=== PATIENT | female | born 1985 | race Caucasian/White ===

== ENCOUNTER 2017-02-04 21:09 | Inpatient (IN) | payer MEDICAID ==
[~2017-02-04] VITALS: Ht 170.2 cm; Wt 55.2 kg
[2017-02-05] MEDS ORDERED: SODIUM CHLORIDE 0.9% 1,000 ML IVB ONE (04:17)
[2017-02-05] MEDS ORDERED: HYDROmorphone HCL 2 MG/ML VL IV ONE (04:30)
[2017-02-05] MEDS ORDERED: ALUM & MAG HYDROX-SIMETH LIQ(MAALOX) 30 ML PO ONE (04:30)
[2017-02-05] MEDS ORDERED: ONDANSETRON HCL 4 MG/2 ML VIAL IV ONE (04:30)
[2017-02-05] MEDS ORDERED: PANTOPRAZOLE SODIUM 40 MG/10 ML VIAL IV ONE (04:30)
[2017-02-05 04:39] LABS: Basophils # (auto) 0 uL; DEFINITIVE VIEW TRANSMISSION; Eosinophils # (auto) 0 uL; Eosinophils % (auto) 0.3 % (0.0-7.0); Hematocrit 40.1 % (36.0-46.0); Hemoglobin 13.4 g/dL (12.2-16.2); Lymphocytes # (auto) 1.1 uL; Lymphocytes % (auto) 25.8 % (10.0-50.0); Mean Corpuscular Hemoglobin 31.4 pg (28.0-32.0); Mean Corpuscular Hgb Conc. 33.4 g/dL (32.0-36.0); Mean Platelet Volume 7.5 fL (7.4-10.4); Monocytes # (auto) 0.6 uL; Monocytes % (auto) 14.4 % (0.0-12.0); Neutrophils # (auto) 2.5 uL; Neutrophils % (auto) 58.5 % (37.0-80.0); Platelet Count (auto) 318 10^3/uL (140-450); White Blood Cell 4.4 10^3/uL (4.4-10.8)
[2017-02-05 04:56] LABS: Albumin 3.8 g/dL (3.4-5.0); Amylase 237 U/L (25-115); Anion Gap 20 (5-15); Aspartate Aminotransferase 234 U/L (15-37); BUN/Creatinine Ratio 8.6; Blood Urea Nitrogen 5 mg/dL (7-18); Calcium 8.9 mg/dL (8.5-10.1); Carbon Dioxide 16 mmol/L (21-32); Chloride 97 mmol/L (98-107); GFR African American 156 mL/min; GFR Non-African American 129 mL/min; Glucose 57 mg/dL (74-106); Magnesium 1.7 mg/dL (1.6-2.6); Potassium 4.6 mmol/L (3.5-5.1); Sodium 133 mmol/L (136-145)
[2017-02-05 04:58] LABS: Alkaline Phosphatase 168 U/L (45-117); Bilirubin, Total 1.1 mg/dL (0.2-1.0); Total Protein 8.4 g/dL (6.4-8.2)
[2017-02-05 05:02] LABS: INR 1.07 (0.9-1.15); Prothrombin Time 11.6 sec (9.37-12.3)
[2017-02-05] MEDS ORDERED: LORazepam 2MG/ML-1ML VIAL IV ONE (06:00)
[2017-02-05] MEDS ORDERED: ACETAMINOPHEN 325 MG TAB PO PRN (07:15)
[2017-02-05] MEDS ORDERED: TEMAZEPAM 15 MG CAP PO PRN (07:15)
[2017-02-05] MEDS: THIAMINE INJ 100 MG, MULTIPLE VITAMIN 10 ML, FOLIC ACID 1 MG, MAGNESIUM SULF SDV 50% 8 ... IV SCH ×10 (07:15→12:16)
[2017-02-05] MEDS ORDERED: DIAZEPAM 5 MG TAB PO PRN (07:15)
[2017-02-05 08:58] LABS: Urine Bilirubin Negative (Negative); Urine Blood Negative /uL (Negative); Urine Color Yellow (Yellow); Urine Glucose Normal (Normal); Urine Mucus FEW (None Seen); Urine Nitrite Negative (Negative); Urine RBC <1 /hpf (0 - 4); Urine Squamous Epithelial Cell FEW /hpf (<5); Urine pH 5.5 (5.0-8.0)
[2017-02-05 08:59] LABS: Urine Ketone 4+ (Negative)
[2017-02-05 09:00] VITALS: BP 92/67
[2017-02-05] MEDS: PANTOPRAZOLE SODIUM 40 MG/10 ML VIAL IV SCH (12:14)
[2017-02-05] MEDS: THIAMINE HCL 100 MG TAB PO SCH (12:15)
[2017-02-05] MEDS: FOLIC ACID 1 MG TAB PO SCH (12:15)
[2017-02-05] MEDS: HYDROcodone-ACET 5/325MG TAB PO PRN ×3 (12:34→21:08)
[2017-02-05 13:17] VITALS: BP 93/60
[2017-02-05 17:02] VITALS: BP 99/61
[2017-02-05 20:00] VITALS: BP 100/64
[2017-02-05] MEDS: ONDANSETRON HCL 4 MG/2 ML VIAL IV PRN (21:08)
[2017-02-05 23:15] VITALS: BP 100/64
[2017-02-06] MEDS: HYDROcodone-ACET 5/325MG TAB PO PRN ×4 (02:46→14:58)
[2017-02-06 05:17] VITALS: BP 110/73
[2017-02-06 06:00] LABS: Basophils # (auto) 0 uL; Basophils % (auto) 0.2 % (0.0-2.0); Eosinophils # (auto) 0.1 uL; Eosinophils % (auto) 1.9 % (0.0-7.0); Hematocrit 33.4 % (36.0-46.0); Hemoglobin 10.9 g/dL (12.2-16.2); Lymphocytes # (auto) 1.8 uL; Lymphocytes % (auto) 48.1 % (10.0-50.0); Mean Corpuscular Hemoglobin 31.4 pg (28.0-32.0); Mean Corpuscular Hgb Conc. 32.8 g/dL (32.0-36.0); Mean Corpuscular Volume 95.7 fL (80.0-100.0); Mean Platelet Volume 7.8 fL (7.4-10.4); Monocytes # (auto) 0.4 uL; Monocytes % (auto) 11.7 % (0.0-12.0); Neutrophils # (auto) 1.5 uL; Neutrophils % (auto) 38.1 % (37.0-80.0); Platelet Count (auto) 231 10^3/uL (140-450); Red Cell Distribution Width 18.8 % (11.6-16.0); White Blood Cell 3.8 10^3/uL (4.4-10.8)
[2017-02-06 06:44] LABS: Albumin 2.9 g/dL (3.4-5.0); Bilirubin, Total 0.8 mg/dL (0.2-1.0); Magnesium 1.9 mg/dL (1.6-2.6); Potassium 3.5 mmol/L (3.5-5.1)
[2017-02-06 08:00] VITALS: BP 117/73
[2017-02-06 08:13] VITALS: BP 117/73
[2017-02-06] MEDS: FOLIC ACID 1 MG TAB PO SCH (09:06)
[2017-02-06] MEDS: THIAMINE HCL 100 MG TAB PO SCH (09:07)
[2017-02-06] MEDS: PANTOPRAZOLE SODIUM 40 MG/10 ML VIAL IV SCH (09:07)
[2017-02-06] MEDS: ONDANSETRON HCL 4 MG/2 ML VIAL IV PRN (09:08)
[2017-02-06] MEDS ORDERED: POTASSIUM CHL 20 Meq TABLET PO ONE (12:00)
[2017-02-06] MEDS ORDERED: MAGNESIUM SULFATE 1GM/100ML 100 ML IV ONE (12:00)
[2017-02-06 12:53] VITALS: BP 103/78
[2017-02-06] MEDS ORDERED: PANT40TA2 PO (13:11)
[2017-02-06] MEDS: THIAMINE INJ 100 MG, MULTIPLE VITAMIN 10 ML, FOLIC ACID 1 MG, MAGNESIUM SULF SDV 50% 8 ... IV SCH ×5 (14:26)
[2017-02-06 17:05] VITALS: BP 111/77
== END 2017-02-06 18:22 | disposition home or self-care (01) | DRG 241 ==
LOC: EDBD 21:09 → ER 21:12 → OVERFLOW 21:13 → EAST 02-05 08:06 → WEST WING 02-05 09:08
PROVIDERS: ADMIT Nurse Practitioner; ATTEND Internal Medicine
DX: K29.20 Alcoholic gastritis without bleeding (principal); K70.30 Alcoholic cirrhosis of liver without ascites; K70.10 Alcoholic hepatitis without ascites; F10.239 Alcohol dependence with withdrawal, unspecified; K76.0 Fatty (change of) liver, not elsewhere classified; F12.90 Cannabis use, unspecified, uncomplicated; F17.210 Nicotine dependence, cigarettes, uncomplicated; F32.9 Major depressive disorder, single episode, unspecified; F41.9 Anxiety disorder, unspecified; Z88.8 Allergy status to other drugs, medicaments and biological substances
CPT/HCPCS: 36415; 36600; 76705; 80053; 80061; 80320; 81001; 82150; 82805; 83690; 83735; 85025; 85610; 85730; 87086; 96361; 96374; 96375; C9113; G0434; J2405

== ENCOUNTER 2017-04-02 13:07 | Inpatient (IN) | payer MEDICAID ==
[~2017-04-02] VITALS: Ht 170.2 cm; Wt 57.1 kg
[~2017-04-02 13:07] MED LIST: PANT40TA2 PO
[2017-04-02] MEDS ORDERED: SODIUM CHLORIDE 0.9% 1,000 ML IV ONE (13:45)
[2017-04-02] MEDS ORDERED: SODIUM CHLORIDE 0.9% 1,000 ML IVB ONE (13:49)
[2017-04-02] MEDS ORDERED: ONDANSETRON HCL 4 MG/2 ML VIAL IV ONE (14:00)
[2017-04-02] MEDS ORDERED: NALBUPHINE HCL 10 MG/1ml INJECTION IV ONE (14:00)
[2017-04-02] MEDS ORDERED: HYDROmorphone HCL 2 MG/ML VL IV ONE (14:00)
[2017-04-02 14:56] LABS: Basophils # (auto) 0 uL; Basophils % (auto) 0.2 % (0.0-2.0); Eosinophils # (auto) 0 uL; Hematocrit 39.1 % (36.0-46.0); Hemoglobin 13.1 g/dL (12.2-16.2); Lymphocytes # (auto) 0.2 uL; Mean Corpuscular Hemoglobin 33.3 pg (28.0-32.0); Mean Corpuscular Hgb Conc. 33.5 g/dL (32.0-36.0); Mean Corpuscular Volume 99.5 fL (80.0-100.0); Mean Platelet Volume 8.8 fL (7.4-10.4); Monocytes # (auto) 0.4 uL; Monocytes % (auto) 3.9 % (0.0-12.0); Neutrophils # (auto) 9.1 uL; Neutrophils % (auto) 93.9 % (37.0-80.0); Platelet Count (auto) 291 10^3/uL (140-450); Red Cell Distribution Width 18.4 % (11.6-16.0); White Blood Cell 9.7 10^3/uL (4.4-10.8)
[2017-04-02 15:06] LABS: Calcium 8.3 mg/dL (8.5-10.1); Magnesium 1.8 mg/dL (1.6-2.6); Potassium 4.4 mmol/L (3.5-5.1)
[2017-04-02 15:10] LABS: BUN/Creatinine Ratio 5.7; Bilirubin, Total 8.4 mg/dL (0.2-1.0); Total Protein 7.3 g/dL (6.4-8.2)
[2017-04-02] MEDS ORDERED: DOPamine 1600MCG/ML 250 ML IV ONE (16:00)
[2017-04-02] MEDS ORDERED: cefTRIAXone 1GM/50ML D5W 50 ML IV ONE (16:45)
[2017-04-02] MEDS ORDERED: NOREPINEPHRINE BITARTRATE 250 ML IV ONE (16:56)
[2017-04-02] MEDS ORDERED: SODIUM CHLORIDE 0.9% 2,000 ML IV ONE (17:00)
[2017-04-02] MEDS ORDERED: PANTOPRAZOLE SODIUM 40 MG/10 ML VIAL IV ONE (17:00)
[2017-04-02] MEDS ORDERED: PIPERACILLIN-TAZOB 3.375GM 100 ML IV ONE (17:00)
[2017-04-02] MEDS: NOREPINEPHRINE BITARTRATE 250 ML IV SCH (17:00)
[2017-04-02] MEDS ORDERED: NITROGLYCERIN 0.4 MG SL TAB SL PRN (17:00)
[2017-04-02] MEDS ORDERED: MORPHINE SULF INJ 2 MG/ML SYRINGE 1ML IV PRN (17:00)
[2017-04-02] MEDS ORDERED: CLINDAMYCIN 600MG IV 50 ML IV ONE (17:00)
[2017-04-02 17:51] LABS: Lactic Acid w/Reflex 9.7 mmol/L (0.4-2.0)
[2017-04-02 18:19] LABS: REFLEX LACTIC ACID YES OR NO YES
[2017-04-02] MEDS: SODIUM CHLORIDE 0.9% 1,000 ML IV SCH (19:00)
[2017-04-02] MEDS: MORPHINE SULF INJ 2 MG/ML SYRINGE 1ML IV PRN ×2 (19:00→23:31)
[2017-04-02] MEDS: LORazepam 2MG/ML-1ML VIAL IV PRN (20:48)
[2017-04-02 20:56] LABS: Albumin 2.1 g/dL (3.4-5.0); BUN/Creatinine Ratio 5.6; Calcium 6.3 mg/dL (8.5-10.1); Potassium 4.7 mmol/L (3.5-5.1)
[2017-04-02] MEDS ORDERED: chlordiazePOXIDE HCL 25 MG CAP PO PRN (21:00)
[2017-04-02 21:12] LABS: Bilirubin, Total 6.2 mg/dL (0.2-1.0); Total Protein 5.2 g/dL (6.4-8.2)
[2017-04-02] MEDS ORDERED: THIAMINE HCL 100 MG/ML 2ML VIAL IV ONE (21:15)
[2017-04-02 22:02] LABS: Urine Color Brown (Yellow); Urine Glucose Normal (Normal); Urine Hyaline Cast MANY /lpf (0 - 2); Urine Ketone TRACE (Negative); Urine Mucus FEW (None Seen); Urine Nitrite Negative (Negative); Urine RBC 15 /hpf (0 - 4); Urine Squamous Epithelial Cell MOD /hpf (<5); Urine WBC Clumps PRESENT /hpf (None Seen); Urine pH 5.5 (5.0-8.0)
[2017-04-02 22:07] LABS: Urine Bilirubin 3+ (Negative); Urine Blood 3+ /uL (Negative)
[2017-04-02] MEDS: CLINDAMYCIN 600MG IV 50 ML IV SCH (22:25)
[2017-04-03] MEDS: SODIUM CHLORIDE 0.9% 1,000 ML IV SCH ×2 (00:06→06:18)
[2017-04-03] MEDS: chlordiazePOXIDE HCL 5 MG CAP PO SCH ×4 (00:18→18:24)
[2017-04-03] MEDS: PIPERACILLIN-TAZOB 3.375GM 100 ML IV SCH ×4 (00:28→18:24)
[2017-04-03] MEDS: NOREPINEPHRINE BITARTRATE 250 ML IV SCH (02:13)
[2017-04-03] MEDS: MORPHINE SULF INJ 2 MG/ML SYRINGE 1ML IV PRN ×3 (03:46→17:00)
[2017-04-03] MEDS: LORazepam 2MG/ML-1ML VIAL IV PRN (04:38)
[2017-04-03] MEDS: CLINDAMYCIN 600MG IV 50 ML IV SCH ×3 (05:25→22:00)
[2017-04-03 08:20] LABS: Basophils # (auto) 0 uL; Basophils % (auto) 0.5 % (0.0-2.0); Eosinophils # (auto) 0 uL; Eosinophils % (auto) 0.5 % (0.0-7.0); Hematocrit 32.9 % (36.0-46.0); Lymphocytes # (auto) 1.2 uL; Lymphocytes % (auto) 15.1 % (10.0-50.0); Mean Corpuscular Hgb Conc. 33.6 g/dL (32.0-36.0); Mean Corpuscular Volume 98.2 fL (80.0-100.0); Mean Platelet Volume 8.5 fL (7.4-10.4); Monocytes # (auto) 0.6 uL; Monocytes % (auto) 7.6 % (0.0-12.0); Neutrophils # (auto) 6.3 uL; Neutrophils % (auto) 76.3 % (37.0-80.0); Platelet Count (auto) 243 10^3/uL (140-450); Red Cell Distribution Width 17.8 % (11.6-16.0); White Blood Cell 8.3 10^3/uL (4.4-10.8)
[2017-04-03 09:09] LABS: Albumin 2.2 g/dL (3.4-5.0); Alkaline Phosphatase 211 U/L (45-117); Amylase 258 U/L (25-115); Anion Gap 12 (5-15); Aspartate Aminotransferase 6884 U/L (15-37); BUN/Creatinine Ratio 9.9; Blood Urea Nitrogen 14 mg/dL (7-18); Calcium 6.4 mg/dL (8.5-10.1); Carbon Dioxide 18 mmol/L (21-32); Chloride 108 mmol/L (98-107); Cholesterol < 50 mg/dL (< 200); GFR African American 55 mL/min; GFR Non-African American 46 mL/min; Glucose 82 mg/dL (74-106); HDL Cholesterol 8 mg/dL (40-59); LDL Cholesterol 32 mg/dL (< 100); Potassium 4.4 mmol/L (3.5-5.1); Sodium 138 mmol/L (136-145); Total Protein 5.3 g/dL (6.4-8.2); Triglycerides 85 mg/dL (< 150)
[2017-04-03] MEDS: PROMETHAZINE HCL 25 MG/ML 1ML IV PRN ×2 (09:30→17:00)
[2017-04-03] MEDS: THIAMINE HCL 100 MG/ML 2ML VIAL IV SCH (12:00)
[2017-04-03] MEDS: PANTOPRAZOLE SODIUM 40 MG/10 ML VIAL IV SCH (12:00)
[2017-04-03] MEDS: LACTATED RINGER'S 1,000 ML IV SCH ×3 (12:30→22:39)
[2017-04-03] MEDS ORDERED: PHYTONADIONE ORAL Susp 10 mg/10ml PO ONE (14:30)
[2017-04-03] MEDS ORDERED: LACTULOSE 20Gm/30ML SOLN PO ONE (23:00)
[2017-04-04] MEDS: PIPERACILLIN-TAZOB 3.375GM 100 ML IV SCH ×5 (00:12→23:59)
[2017-04-04] MEDS: LACTATED RINGER'S 1,000 ML IV SCH ×5 (03:52→23:30)
[2017-04-04 04:18] LABS: Basophils # (auto) 0.1 uL; Basophils % (auto) 1.4 % (0.0-2.0); Eosinophils # (auto) 0.5 uL; Hematocrit 31.5 % (36.0-46.0); Hemoglobin 10.8 g/dL (12.2-16.2); Mean Corpuscular Hemoglobin 33.2 pg (28.0-32.0); Mean Corpuscular Hgb Conc. 34.4 g/dL (32.0-36.0); Mean Corpuscular Volume 96.5 fL (80.0-100.0); Mean Platelet Volume 7.9 fL (7.4-10.4); Monocytes # (auto) 0.4 uL; Monocytes % (auto) 9.6 % (0.0-12.0); Neutrophils # (auto) 2.5 uL; Platelet Count (auto) 218 10^3/uL (140-450); Red Cell Distribution Width 17.5 % (11.6-16.0); White Blood Cell 4.5 10^3/uL (4.4-10.8)
[2017-04-04 04:32] LABS: Albumin 1.7 g/dL (3.4-5.0); BUN/Creatinine Ratio 15.7; Calcium 6.7 mg/dL (8.5-10.1); Potassium 3.2 mmol/L (3.5-5.1)
[2017-04-04 04:48] LABS: Bilirubin, Total 6.3 mg/dL (0.2-1.0); Total Protein 4.7 g/dL (6.4-8.2)
[2017-04-04 05:04] LABS: INR > 10 (0.9-1.15)
[2017-04-04] MEDS: chlordiazePOXIDE HCL 5 MG CAP PO SCH ×5 (06:00→23:59)
[2017-04-04] MEDS: CLINDAMYCIN 600MG IV 50 ML IV SCH (06:20)
[2017-04-04] MEDS: MORPHINE SULF INJ 2 MG/ML SYRINGE 1ML IV PRN (09:12)
[2017-04-04] MEDS: PHYTONADIONE ORAL Susp 10 mg/10ml PO SCH (10:00)
[2017-04-04] MEDS ORDERED: POTASSIUM CHL 20MEQ/100ML 100 ML IV ONE (13:30)
[2017-04-04] MEDS: THIAMINE HCL 100 MG/ML 2ML VIAL IV SCH (13:38)
[2017-04-04] MEDS: PANTOPRAZOLE SODIUM 40 MG/10 ML VIAL IV SCH (13:39)
[2017-04-04] MEDS: LACTULOSE 20Gm/30ML SOLN PR SCH ×3 (13:47→23:59)
[2017-04-04 14:03] VITALS: BP 105/70
[2017-04-04 20:00] VITALS: BP 95/54
[2017-04-04] MEDS: PROMETHAZINE HCL 25 MG/ML 1ML IV PRN (20:45)
[2017-04-04 22:00] VITALS: BP 95/54
[2017-04-05] VITALS (7 sets, daily range): BP systolic 101–120; BP diastolic 44–73
[2017-04-05] MEDS: LACTATED RINGER'S 1,000 ML IV SCH ×4 (04:30→18:23)
[2017-04-05] MEDS: PIPERACILLIN-TAZOB 3.375GM 100 ML IV SCH ×3 (05:40→18:21)
[2017-04-05] MEDS: chlordiazePOXIDE HCL 5 MG CAP PO SCH ×3 (05:40→18:21)
[2017-04-05] MEDS: LACTULOSE 20Gm/30ML SOLN PR SCH ×3 (05:40→18:22)
[2017-04-05] MEDS: MORPHINE SULF INJ 2 MG/ML SYRINGE 1ML IV PRN (05:41)
[2017-04-05 06:14] LABS: Basophils # (auto) 0 uL; Basophils % (auto) 0.9 % (0.0-2.0); Eosinophils # (auto) 0.5 uL; Eosinophils % (auto) 9.3 % (0.0-7.0); Hematocrit 31.5 % (36.0-46.0); Hemoglobin 11.2 g/dL (12.2-16.2); Lymphocytes # (auto) 0.7 uL; Lymphocytes % (auto) 13.2 % (10.0-50.0); Mean Corpuscular Hemoglobin 33.8 pg (28.0-32.0); Mean Corpuscular Hgb Conc. 35.6 g/dL (32.0-36.0); Mean Corpuscular Volume 94.9 fL (80.0-100.0); Mean Platelet Volume 7.9 fL (7.4-10.4); Monocytes # (auto) 0.6 uL; Monocytes % (auto) 11.7 % (0.0-12.0); Neutrophils # (auto) 3.2 uL; Neutrophils % (auto) 64.9 % (37.0-80.0); Platelet Count (auto) 224 10^3/uL (140-450); Red Cell Distribution Width 18.4 % (11.6-16.0); White Blood Cell 4.9 10^3/uL (4.4-10.8)
[2017-04-05 06:37] LABS: INR 2.07 (0.9-1.15); Prothrombin Time 22.7 sec (9.37-12.3)
[2017-04-05 06:40] LABS: Albumin 1.8 g/dL (3.4-5.0); BUN/Creatinine Ratio 15.4; Bilirubin, Total 7.7 mg/dL (0.2-1.0); Calcium 6.6 mg/dL (8.5-10.1); Magnesium 1.3 mg/dL (1.6-2.6); Total Protein 4.7 g/dL (6.4-8.2)
[2017-04-05] MEDS: PANTOPRAZOLE SODIUM 40 MG/10 ML VIAL IV SCH (09:55)
[2017-04-05] MEDS: THIAMINE HCL 100 MG/ML 2ML VIAL IV SCH (09:55)
[2017-04-05] MEDS: PHYTONADIONE ORAL Susp 10 mg/10ml PO SCH (09:56)
[2017-04-05] MEDS ORDERED: POTASSIUM CHL 20MEQ/100ML 100 ML IV SCH ×2 (16:15→20:00)
[2017-04-05] MEDS ORDERED: MAGNESIUM SULFATE 1GM/100ML 100 ML IV SCH ×2 (17:00→20:00)
[2017-04-06] MEDS ORDERED: MAGNESIUM SULFATE 1GM/100ML 100 ML IV ONE (01:17)
[2017-04-06 01:30] VITALS: BP 117/73
[2017-04-06] MEDS: MORPHINE SULF INJ 2 MG/ML SYRINGE 1ML IV PRN ×3 (01:30→22:37)
[2017-04-06] MEDS: PROMETHAZINE HCL 25 MG/ML 1ML IV PRN ×2 (01:30→17:28)
[2017-04-06] MEDS: PIPERACILLIN-TAZOB 3.375GM 100 ML IV SCH ×4 (01:40→17:24)
[2017-04-06] MEDS: chlordiazePOXIDE HCL 5 MG CAP PO SCH ×4 (01:40→17:26)
[2017-04-06] MEDS: LACTULOSE 20Gm/30ML SOLN PR SCH ×2 (01:40→06:00)
[2017-04-06 04:47] VITALS: BP 116/67
[2017-04-06] MEDS: LACTATED RINGER'S 1,000 ML IV SCH ×5 (05:30→22:18)
[2017-04-06 06:31] LABS: Albumin 1.7 g/dL (3.4-5.0); BUN/Creatinine Ratio 5.7; Calcium 7.3 mg/dL (8.5-10.1); Magnesium 2.2 mg/dL (1.6-2.6); Potassium 3.2 mmol/L (3.5-5.1)
[2017-04-06 06:34] LABS: Bilirubin, Total 7.9 mg/dL (0.2-1.0)
[2017-04-06 06:37] LABS: INR 1.61 (0.9-1.15); Prothrombin Time 17.6 sec (9.37-12.3)
[2017-04-06 09:00] VITALS: BP 103/65
[2017-04-06] MEDS: PHYTONADIONE ORAL Susp 10 mg/10ml PO SCH (10:02)
[2017-04-06] MEDS: PANTOPRAZOLE SODIUM 40 MG/10 ML VIAL IV SCH (10:07)
[2017-04-06] MEDS: THIAMINE HCL 100 MG/ML 2ML VIAL IV SCH (10:07)
[2017-04-06 13:00] VITALS: BP 114/74
[2017-04-06] MEDS: LACTULOSE 20Gm/30ML SOLN PO SCH ×2 (14:00→22:19)
[2017-04-06] MEDS: POTASSIUM CHL 20MEQ/100ML 100 ML IV SCH ×2 (15:28→17:23)
[2017-04-06 17:00] VITALS: BP 106/68
[2017-04-06 21:41] VITALS: BP 118/78
[2017-04-07] MEDS: LACTATED RINGER'S 1,000 ML IV SCH ×5 (01:30→22:29)
[2017-04-07] MEDS: PIPERACILLIN-TAZOB 3.375GM 100 ML IV SCH ×2 (01:41→05:31)
[2017-04-07] MEDS: chlordiazePOXIDE HCL 5 MG CAP PO SCH ×4 (01:42→17:45)
[2017-04-07 05:00] VITALS: BP 136/93
[2017-04-07] MEDS: LACTULOSE 20Gm/30ML SOLN PO SCH ×3 (05:32→21:48)
[2017-04-07] MEDS: MORPHINE SULF INJ 2 MG/ML SYRINGE 1ML IV PRN ×4 (05:34→22:11)
[2017-04-07 08:00] VITALS: BP 118/71
[2017-04-07 08:00] LABS: INR 1.59 (0.9-1.15); Prothrombin Time 17.4 sec (9.37-12.3)
[2017-04-07 08:10] LABS: Calcium 7.3 mg/dL (8.5-10.1); Chloride 111 mmol/L (98-107); Potassium 3.3 mmol/L (3.5-5.1); Sodium 144 mmol/L (136-145)
[2017-04-07 08:13] LABS: Albumin 1.7 g/dL (3.4-5.0); Anion Gap 9 (5-15); Aspartate Aminotransferase 340 U/L (15-37); BUN/Creatinine Ratio 2.2; Blood Urea Nitrogen < 1 mg/dL (7-18); Carbon Dioxide 24 mmol/L (21-32); GFR African American 209 mL/min; GFR Non-African American 173 mL/min; Glucose 98 mg/dL (74-106)
[2017-04-07 08:23] LABS: Alkaline Phosphatase 147 U/L (45-117)
[2017-04-07] MEDS: THIAMINE HCL 100 MG/ML 2ML VIAL IV SCH (09:00)
[2017-04-07] MEDS: PANTOPRAZOLE SODIUM 40 MG/10 ML VIAL IV SCH (09:00)
[2017-04-07 09:19] VITALS: BP 118/71
[2017-04-07] MEDS ORDERED: POTASSIUM CHL 20MEQ/100ML 100 ML IV SCH (10:30)
[2017-04-07] MEDS ORDERED: cefTRIAXone 1GM/50ML D5W 50 ML IV ONE (10:30)
[2017-04-07 11:44] VITALS: BP 113/74
[2017-04-07] MEDS ORDERED: POTASSIUM CHLORIDE 20 MEQ, LIDOCAINE 1% (LOCAL ANESTH.) 2 ML in SODIUM CHL 0.9% 100 ML IV SCH (13:00)
[2017-04-07] MEDS ORDERED: POTASSIUM CHL 10% (20 MEQ/15ML) ORAL SOLN PO ONE (14:00)
[2017-04-07 20:00] VITALS: BP 131/65
[2017-04-07 22:00] VITALS: BP 131/65
[2017-04-08] MEDS: chlordiazePOXIDE HCL 5 MG CAP PO SCH ×4 (00:49→17:49)
[2017-04-08] MEDS: MORPHINE SULF INJ 2 MG/ML SYRINGE 1ML IV PRN ×4 (02:30→21:25)
[2017-04-08] MEDS: LACTATED RINGER'S 1,000 ML IV SCH ×2 (02:30→06:44)
[2017-04-08 05:00] VITALS: BP 110/72
[2017-04-08] MEDS: LACTULOSE 20Gm/30ML SOLN PO SCH ×3 (05:57→21:36)
[2017-04-08 07:12] LABS: Albumin 1.8 g/dL (3.4-5.0); BUN/Creatinine Ratio 5.4; Bilirubin, Total 9.4 mg/dL (0.2-1.0); Calcium 7.9 mg/dL (8.5-10.1); Magnesium 1.9 mg/dL (1.6-2.6); Total Protein 5.5 g/dL (6.4-8.2)
[2017-04-08 09:00] VITALS: BP 119/80
[2017-04-08 10:37] LABS: DEFINITIVE VIEW TRANSMISSION; Hematocrit 33.9 % (36.0-46.0); Hemoglobin 11.3 g/dL (12.2-16.2); Mean Corpuscular Hemoglobin 33.1 pg (28.0-32.0); Mean Corpuscular Hgb Conc. 33.5 g/dL (32.0-36.0); Mean Corpuscular Volume 98.9 fL (80.0-100.0); Mean Platelet Volume 8.7 fL (7.4-10.4); Platelet Count (auto) 199 10^3/uL (140-450); Red Cell Distribution Width 19.6 % (11.6-16.0); White Blood Cell 7.3 10^3/uL (4.4-10.8)
[2017-04-08 10:39] LABS: Metamyelocytes % 0; Myelocytes % 0; Promyelocytes % 0; Reactive Lymphocytes 0
[2017-04-08 10:56] LABS: INR 1.52 (0.9-1.15); Prothrombin Time 16.6 sec (9.37-12.3)
[2017-04-08 11:08] LABS: Anisocytosis Slight; Platelet Estimate Adequate
[2017-04-08] MEDS: cefTRIAXone 1GM/50ML D5W 50 ML IV SCH (11:12)
[2017-04-08] MEDS: THIAMINE HCL 100 MG/ML 2ML VIAL IV SCH (11:13)
[2017-04-08 13:00] VITALS: BP 120/90
[2017-04-08] MEDS ORDERED: MAGNESIUM SULFATE 1GM/100ML 100 ML IV ONE (13:00)
[2017-04-08] MEDS: SODIUM CHLORIDE 0.9% 1,000 ML IV SCH ×2 (13:52→21:37)
[2017-04-08 17:07] VITALS: BP 107/66
[2017-04-08] MEDS: PANTOPRAZOLE 40 MG TAB PO SCH (21:36)
[2017-04-08 22:00] VITALS: BP 131/92
[2017-04-09] MEDS: MORPHINE SULF INJ 2 MG/ML SYRINGE 1ML IV PRN ×4 (01:26→23:57)
[2017-04-09 05:48] VITALS: BP 110/70
[2017-04-09] MEDS: chlordiazePOXIDE HCL 5 MG CAP PO SCH ×2 (05:54)
[2017-04-09] MEDS: LACTULOSE 20Gm/30ML SOLN PO SCH ×3 (05:54→21:14)
[2017-04-09] MEDS: cefTRIAXone 1GM/50ML D5W 50 ML IV SCH (08:57)
[2017-04-09 09:00] VITALS: BP 106/69
[2017-04-09] MEDS: THIAMINE HCL 100 MG/ML 2ML VIAL IV SCH (10:35)
[2017-04-09] MEDS: PANTOPRAZOLE 40 MG TAB PO SCH ×2 (10:35→21:15)
[2017-04-09 10:36] LABS: Magnesium 1.7 mg/dL (1.6-2.6); Potassium 4.1 mmol/L (3.5-5.1)
[2017-04-09] MEDS: MAGNESIUM SULFATE 1GM/100ML 100 ML IV ONE ×2 (11:30→12:16)
[2017-04-09 12:45] VITALS: BP 110/75
[2017-04-09] MEDS: SODIUM CHLORIDE 0.9% 1,000 ML IV SCH (16:12)
[2017-04-09 16:50] VITALS: BP 132/89
[2017-04-09 20:00] VITALS: BP 125/77
[2017-04-09 22:00] VITALS: BP 125/77
[2017-04-10 05:30] VITALS: BP 105/59
[2017-04-10] MEDS: SODIUM CHLORIDE 0.9% 1,000 ML IV SCH ×2 (05:47→18:33)
[2017-04-10] MEDS: LACTULOSE 20Gm/30ML SOLN PO SCH ×3 (05:47→22:00)
[2017-04-10] MEDS: MORPHINE SULF INJ 2 MG/ML SYRINGE 1ML IV PRN ×3 (05:58→18:16)
[2017-04-10 07:05] LABS: INR 1.5 (0.9-1.15); Prothrombin Time 16.4 sec (9.37-12.3)
[2017-04-10 07:10] LABS: Albumin 1.7 g/dL (3.4-5.0); Bilirubin, Total 9.4 mg/dL (0.2-1.0); Magnesium 1.8 mg/dL (1.6-2.6); Total Protein 5.2 g/dL (6.4-8.2)
[2017-04-10 07:14] LABS: Bilirubin, Direct 7.8 mg/dL (0-0.2)
[2017-04-10 08:45] VITALS: BP 123/83
[2017-04-10] MEDS: cefTRIAXone 1GM/50ML D5W 50 ML IV SCH (09:35)
[2017-04-10] MEDS: PANTOPRAZOLE 40 MG TAB PO SCH ×2 (09:36→22:15)
[2017-04-10] MEDS: THIAMINE HCL 100 MG/ML 2ML VIAL IV SCH (09:36)
[2017-04-10] MEDS ORDERED: MAGNESIUM SULFATE 1GM/100ML 100 ML IV ONE (11:00)
[2017-04-10] MEDS ORDERED: chlordiazePOXIDE HCL 25 MG CAP PO PRN (11:00)
[2017-04-10 13:00] VITALS: BP 112/79
[2017-04-10 17:00] VITALS: BP 118/78
[2017-04-10 21:18] VITALS: BP 121/88
[2017-04-11] MEDS: MORPHINE SULF INJ 2 MG/ML SYRINGE 1ML IV PRN ×4 (01:41→19:49)
[2017-04-11 04:56] VITALS: BP 112/57
[2017-04-11] MEDS: LACTULOSE 20Gm/30ML SOLN PO SCH ×3 (05:54→21:49)
[2017-04-11 06:58] LABS: Albumin 1.7 g/dL (3.4-5.0); Bilirubin, Total 9.6 mg/dL (0.2-1.0); Magnesium 1.7 mg/dL (1.6-2.6); Potassium 3.7 mmol/L (3.5-5.1); Total Protein 5.3 g/dL (6.4-8.2)
[2017-04-11 07:00] LABS: Bilirubin, Direct 7.8 mg/dL (0-0.2)
[2017-04-11] MEDS: SODIUM CHLORIDE 0.9% 1,000 ML IV SCH ×2 (07:40→21:00)
[2017-04-11] MEDS: THIAMINE HCL 100 MG/ML 2ML VIAL IV SCH (08:38)
[2017-04-11] MEDS: cefTRIAXone 1GM/50ML D5W 50 ML IV SCH (08:40)
[2017-04-11] MEDS: PANTOPRAZOLE 40 MG TAB PO SCH ×2 (08:42→21:49)
[2017-04-11 09:00] VITALS: BP 117/72
[2017-04-11] MEDS ORDERED: POTASSIUM CHL 20 Meq TABLET PO ONE (11:45)
[2017-04-11] MEDS: MAGNESIUM SULFATE 1GM/100ML 100 ML IV SCH ×2 (12:55→14:23)
[2017-04-11 13:00] VITALS: BP 107/58
[2017-04-11 17:00] VITALS: BP 121/76
[2017-04-11 21:30] VITALS: BP 120/76
[2017-04-12] MEDS: MORPHINE SULF INJ 2 MG/ML SYRINGE 1ML IV PRN ×5 (04:23→19:59)
[2017-04-12 05:02] VITALS: BP 112/70
[2017-04-12] MEDS: LACTULOSE 20Gm/30ML SOLN PO SCH ×2 (05:46→13:54)
[2017-04-12 06:31] LABS: Albumin 1.6 g/dL (3.4-5.0); Bilirubin, Total 10.2 mg/dL (0.2-1.0); Magnesium 1.8 mg/dL (1.6-2.6); Potassium 4.1 mmol/L (3.5-5.1); Total Protein 5.6 g/dL (6.4-8.2)
[2017-04-12 06:33] LABS: Bilirubin, Direct 7.5 mg/dL (0-0.2)
[2017-04-12 09:00] VITALS: BP 110/73
[2017-04-12] MEDS: PANTOPRAZOLE 40 MG TAB PO SCH ×2 (09:20→22:01)
[2017-04-12] MEDS: SODIUM CHLORIDE 0.9% 1,000 ML IV SCH (09:21)
[2017-04-12] MEDS: THIAMINE HCL 100 MG/ML 2ML VIAL IV SCH (09:21)
[2017-04-12] MEDS: cefTRIAXone 1GM/50ML D5W 50 ML IV SCH (09:21)
[2017-04-12 13:00] VITALS: BP 110/66
[2017-04-12 17:00] VITALS: BP 113/71
[2017-04-12] MEDS: PRO-STAT 64 30ML PO SCH ×2 (18:00)
[2017-04-12 20:00] VITALS: BP 133/91
[2017-04-12 22:05] VITALS: BP 133/91
[2017-04-13] MEDS: MORPHINE SULF INJ 2 MG/ML SYRINGE 1ML IV PRN ×5 (00:26→21:00)
[2017-04-13 04:36] VITALS: BP 107/76
[2017-04-13] MEDS: PRO-STAT 64 30ML PO SCH ×4 (08:00→18:00)
[2017-04-13] MEDS: THIAMINE HCL 100 MG/ML 2ML VIAL IV SCH (08:54)
[2017-04-13] MEDS: cefTRIAXone 1GM/50ML D5W 50 ML IV SCH (08:54)
[2017-04-13] MEDS: PANTOPRAZOLE 40 MG TAB PO SCH ×2 (08:54→21:37)
[2017-04-13 09:00] VITALS: BP 113/70
[2017-04-13 13:00] VITALS: BP 127/80
[2017-04-13] MEDS: SODIUM CHLORIDE 0.9% 1,000 ML IV SCH (13:00)
[2017-04-13 14:04] LABS: Basophils # (auto) 0 uL; Basophils % (auto) 0.8 % (0.0-2.0); DEFINITIVE VIEW TRANSMISSION; Eosinophils # (auto) 0.5 uL; Eosinophils % (auto) 7.7 % (0.0-7.0); Hematocrit 33.5 % (36.0-46.0); Hemoglobin 11.5 g/dL (12.2-16.2); Lymphocytes # (auto) 1.9 uL; Lymphocytes % (auto) 30.4 % (10.0-50.0); Mean Corpuscular Hemoglobin 33.2 pg (28.0-32.0); Mean Corpuscular Hgb Conc. 34.3 g/dL (32.0-36.0); Mean Platelet Volume 8.9 fL (7.4-10.4); Monocytes # (auto) 0.6 uL; Monocytes % (auto) 9.4 % (0.0-12.0); Neutrophils # (auto) 3.2 uL; Neutrophils % (auto) 51.7 % (37.0-80.0); Platelet Count (auto) 231 10^3/uL (140-450); White Blood Cell 6.2 10^3/uL (4.4-10.8)
[2017-04-13 14:06] LABS: Red Cell Distribution Width 20.4 % (11.6-16.0)
[2017-04-13 14:36] LABS: Albumin 1.8 g/dL (3.4-5.0); Bilirubin, Direct 9.8 mg/dL (0-0.2); Bilirubin, Total 12.3 mg/dL (0.2-1.0); Total Protein 6.3 g/dL (6.4-8.2)
[2017-04-13 15:04] LABS: Anisocytosis Slight; Platelet Estimate Adequate
[2017-04-13 16:22] LABS: BUN/Creatinine Ratio 2.5; Potassium 3.6 mmol/L (3.5-5.1)
[2017-04-13 16:23] LABS: Calcium 7.9 mg/dL (8.5-10.1)
[2017-04-13 17:00] VITALS: BP 112/76
[2017-04-13 20:00] VITALS: BP 122/85
[2017-04-13 21:16] VITALS: BP 122/85
[2017-04-14] VITALS (8 sets, daily range): BP systolic 112–147; BP diastolic 56–79
[2017-04-14] MEDS: MORPHINE SULF INJ 2 MG/ML SYRINGE 1ML IV PRN ×4 (04:51→19:44)
[2017-04-14 06:41] LABS: Basophils # (auto) 0.1 uL; Basophils % (auto) 0.9 % (0.0-2.0); DEFINITIVE VIEW TRANSMISSION; Eosinophils # (auto) 0.7 uL; Eosinophils % (auto) 10.7 % (0.0-7.0); Lymphocytes # (auto) 1.8 uL; Lymphocytes % (auto) 27.9 % (10.0-50.0); Mean Corpuscular Hemoglobin 33.2 pg (28.0-32.0); Mean Corpuscular Hgb Conc. 34.4 g/dL (32.0-36.0); Mean Corpuscular Volume 96.6 fL (80.0-100.0); Mean Platelet Volume 9.1 fL (7.4-10.4); Monocytes # (auto) 0.5 uL; Monocytes % (auto) 8.3 % (0.0-12.0); Neutrophils # (auto) 3.4 uL; Neutrophils % (auto) 52.2 % (37.0-80.0); Platelet Count (auto) 210 10^3/uL (140-450); Red Cell Distribution Width 19.9 % (11.6-16.0); White Blood Cell 6.5 10^3/uL (4.4-10.8)
[2017-04-14 07:42] LABS: Albumin 1.6 g/dL (3.4-5.0); BUN/Creatinine Ratio 6.1; Bilirubin, Total 10.3 mg/dL (0.2-1.0); Calcium 7.6 mg/dL (8.5-10.1); Potassium 3.5 mmol/L (3.5-5.1); Total Protein 5.4 g/dL (6.4-8.2)
[2017-04-14 07:43] LABS: Bilirubin, Direct 8.3 mg/dL (0-0.2)
[2017-04-14] MEDS: PRO-STAT 64 30ML PO SCH ×4 (08:00→18:00)
[2017-04-14] MEDS: PANTOPRAZOLE 40 MG TAB PO SCH ×2 (09:35→21:42)
[2017-04-14] MEDS: THIAMINE HCL 100 MG/ML 2ML VIAL IV SCH (09:37)
[2017-04-14] MEDS: cefTRIAXone 1GM/50ML D5W 50 ML IV SCH (09:40)
[2017-04-14] MEDS ORDERED: POTASSIUM CHL 20 Meq TABLET PO ONE (11:15)
[2017-04-14] MEDS: SODIUM CHLORIDE 0.9% 1,000 ML IV SCH (13:06)
[2017-04-14 14:42] LABS: Base Excess -2.2 mmol/L (-2.0-2.0); Blood 02Sat 93.6 % (96-100); Blood COHb 0.4 % (0.5-1.5); Blood MetHb 0.4 % (0.0-1.5); HCO3 20.9 mmol/L (22-26.0); HHb 6.3 % (0.0-5.0); MODE nc; O2Hb 92.9 % (94.0-97.0); PCO2 30.3 mmHg (35.0-45.0); PCO2(T) 30.3 mmHg (35.0-45.0); PO2 72.8 mmHg (80.0-100.0); PO2(T) 72.8 mmHg (80.0-100.0); Room 0277T; Sample Type Arterial; pH 7.456 (7.350-7.450)
[2017-04-14] MEDS: NutriHep 250 mL Bottle PO SCH (18:00)
[2017-04-15] VITALS (7 sets, daily range): BP systolic 108–137; BP diastolic 67–86
[2017-04-15] MEDS: MORPHINE SULF INJ 2 MG/ML SYRINGE 1ML IV PRN ×3 (00:50→10:16)
[2017-04-15 06:55] LABS: INR 1.47 (0.9-1.15); Prothrombin Time 16.1 sec (9.37-12.3)
[2017-04-15 06:59] LABS: Albumin 1.7 g/dL (3.4-5.0); Bilirubin, Total 11.4 mg/dL (0.2-1.0); Magnesium 1.7 mg/dL (1.6-2.6); Total Protein 5.9 g/dL (6.4-8.2)
[2017-04-15 07:07] LABS: Bilirubin, Direct 8.6 mg/dL (0-0.2)
[2017-04-15] MEDS: NutriHep 250 mL Bottle PO SCH ×2 (07:57→17:01)
[2017-04-15] MEDS: PRO-STAT 64 30ML PO SCH ×3 (07:57→17:01)
[2017-04-15] MEDS: cefTRIAXone 1GM/50ML D5W 50 ML IV SCH (08:30)
[2017-04-15] MEDS ORDERED: MAGNESIUM SULFATE 1GM/100ML 100 ML IV ONE (09:15)
[2017-04-15] MEDS: PANTOPRAZOLE 40 MG TAB PO SCH ×2 (10:16→22:28)
[2017-04-15] MEDS: THIAMINE HCL 100 MG/ML 2ML VIAL IV SCH (10:16)
[2017-04-15] MEDS ORDERED: PROMETHAZINE HCL 25 MG/ML 1ML IV PRN (11:00)
[2017-04-15] MEDS: HYDROmorphone HCL 2 MG/ML VL IV PRN ×3 (14:19→22:33)
[2017-04-15] MEDS: SODIUM CHLORIDE 0.9% 1,000 ML IV SCH (17:01)
[2017-04-16 05:00] VITALS: BP 103/64
[2017-04-16] MEDS: HYDROmorphone HCL 2 MG/ML VL IV PRN ×5 (05:55→22:53)
[2017-04-16 06:34] LABS: Albumin 1.6 g/dL (3.4-5.0); Bilirubin, Total 10.1 mg/dL (0.2-1.0); Magnesium 1.6 mg/dL (1.6-2.6); Potassium 3.5 mmol/L (3.5-5.1); Total Protein 5.6 g/dL (6.4-8.2)
[2017-04-16 06:36] LABS: Bilirubin, Direct 8.3 mg/dL (0-0.2)
[2017-04-16] MEDS: NutriHep 250 mL Bottle PO SCH ×2 (07:32→18:00)
[2017-04-16] MEDS: PRO-STAT 64 30ML PO SCH ×2 (07:33→18:01)
[2017-04-16 08:00] VITALS: BP 109/68
[2017-04-16 09:00] VITALS: BP 109/68
[2017-04-16] MEDS: PANTOPRAZOLE 40 MG TAB PO SCH ×2 (10:26→22:53)
[2017-04-16] MEDS: THIAMINE HCL 100 MG/ML 2ML VIAL IV SCH (10:27)
[2017-04-16] MEDS: SODIUM CHLORIDE 0.9% 1,000 ML IV SCH (12:26)
[2017-04-16 12:55] VITALS: BP 110/83
[2017-04-16] MEDS ORDERED: POTASSIUM CHL 20 Meq TABLET PO ONE (13:45)
[2017-04-16] MEDS: MAGNESIUM SULFATE 1GM/100ML 100 ML IV SCH ×2 (14:12→15:43)
[2017-04-16 16:48] VITALS: BP 125/78
[2017-04-16 22:00] VITALS: BP 106/72
[2017-04-17] MEDS: HYDROmorphone HCL 2 MG/ML VL IV PRN ×5 (04:17→23:17)
[2017-04-17 05:29] VITALS: BP 106/56
[2017-04-17 08:00] VITALS: BP 104/67
[2017-04-17] MEDS: NutriHep 250 mL Bottle PO SCH ×2 (08:00→17:51)
[2017-04-17] MEDS: PRO-STAT 64 30ML PO SCH ×2 (08:32→17:50)
[2017-04-17 09:00] VITALS: BP 104/67
[2017-04-17] MEDS: THIAMINE HCL 100 MG/ML 2ML VIAL IV SCH (10:02)
[2017-04-17] MEDS: PANTOPRAZOLE 40 MG TAB PO SCH ×2 (10:02→23:17)
[2017-04-17] MEDS ORDERED: HYDR-4663 PO (12:05)
[2017-04-17] MEDS ORDERED: CITA10TA59 PO (12:05)
[2017-04-17 13:09] VITALS: BP 107/69
[2017-04-17 17:00] VITALS: BP 118/75
[2017-04-17 22:00] VITALS: BP 119/76
[2017-04-18] MEDS: HYDROmorphone HCL 2 MG/ML VL IV PRN (03:28)
[2017-04-18 05:00] VITALS: BP 99/63
[2017-04-18] MEDS: PRO-STAT 64 30ML PO SCH (08:00)
[2017-04-18] MEDS: NutriHep 250 mL Bottle PO SCH (08:00)
[2017-04-18 08:56] VITALS: BP 104/61
[2017-04-18] MEDS: PANTOPRAZOLE 40 MG TAB PO SCH (09:53)
[2017-04-18] MEDS: THIAMINE HCL 100 MG/ML 2ML VIAL IV SCH (09:53)
== END 2017-04-18 10:26 | disposition home health service (06) | DRG 280 ==
LOC: ER 13:07 → TELE 13:08 → TELE-E-ADS 04-04 10:17 → TELE-WESTW 04-04 13:06
PROVIDERS: ADMIT Internal Medicine; ATTEND Internal Medicine
PROC: 0W9G3ZZ Drainage of Peritoneal Cavity, Percutaneous Approach (ICD-10-PCS; principal; 2017-04-15)
DX: K70.40 Alcoholic hepatic failure without coma (principal); K70.11 Alcoholic hepatitis with ascites; N17.0 Acute kidney failure with tubular necrosis; K85.90 Acute pancreatitis without necrosis or infection, unspecified; D68.4 Acquired coagulation factor deficiency; E44.0 Moderate protein-calorie malnutrition; K86.3 Pseudocyst of pancreas; N39.0 Urinary tract infection, site not specified; E87.6 Hypokalemia; F17.210 Nicotine dependence, cigarettes, uncomplicated; E86.0 Dehydration; D64.9 Anemia, unspecified; F32.9 Major depressive disorder, single episode, unspecified; G43.909 Migraine, unspecified, not intractable, without status migrainosus; E86.1 Hypovolemia; F10.20 Alcohol dependence, uncomplicated; N85.4 Malposition of uterus; K86.1 Other chronic pancreatitis; K76.0 Fatty (change of) liver, not elsewhere classified; K65.4 Sclerosing mesenteritis; I89.0 Lymphedema, not elsewhere classified; F41.9 Anxiety disorder, unspecified; I95.1 Orthostatic hypotension; Z68.1 Body mass index [BMI] 19.9 or less, adult; Z82.49 Family history of ischemic heart disease and other diseases of the circulatory system; Z87.11 Personal history of peptic ulcer disease; Z80.3 Family history of malignant neoplasm of breast; Z88.5 Allergy status to narcotic agent; Z71.89 Other specified counseling
CPT/HCPCS: 10022; 36415; 36600; 51702; 71010; 74176; 76700; 76942; 78226; 80048; 80053; 80061; 80074; 80076; 80307; 80320; 81001; 81025; 82140; 82150; 82805; 83605; 83690; 83735; 84132; 84702; 85007; 85025; 85027; 85610; 85652; 85730; 86141; 86850; 86900; 86901; 87040; 87086; 87088; 87186; 87205; 87493; 88341; 93005; 96361; 96365; 96366; 96375; 97110; 97116; 97530; 99291; C9113; J0696; J2001; J2405; J2543; J3480; J3490

== ENCOUNTER 2017-04-23 16:15 | Emergency (ER) | payer MEDICAID ==
[~2017-04-23] VITALS: Ht 170.2 cm; Wt 49.9 kg
[~2017-04-23 16:15] MED LIST changes: +CITA10TA59 PO; +HYDR-4663 PO
[2017-04-23 17:43] LABS: Basophils # (auto) 0 uL; Basophils % (auto) 0.2 % (0.0-2.0); CONDITION Y; DEFINITIVE SEE PRINTOUT; Eosinophils # (auto) 0.2 uL; Hematocrit 32.6 % (36.0-46.0); Hemoglobin 11.2 g/dL (12.2-16.2); Lymphocytes # (auto) 1.6 uL; Lymphocytes % (auto) 21.2 % (10.0-50.0); Mean Corpuscular Hemoglobin 33.5 pg (28.0-32.0); Mean Corpuscular Hgb Conc. 34.4 g/dL (32.0-36.0); Mean Corpuscular Volume 97.3 fL (80.0-100.0); Mean Platelet Volume 8.7 fL (7.4-10.4); Monocytes # (auto) 0.5 uL; Monocytes % (auto) 6.1 % (0.0-12.0); Neutrophils # (auto) 5.3 uL; Neutrophils % (auto) 69.5 % (37.0-80.0); Platelet Count (auto) 304 10^3/uL (140-450); Red Cell Distribution Width 19.3 % (11.6-16.0); White Blood Cell 7.6 10^3/uL (4.4-10.8)
[2017-04-23 18:05] LABS: Albumin 2.1 g/dL (3.4-5.0); Anion Gap 8 (5-15); BUN/Creatinine Ratio 8.2; Blood Urea Nitrogen 4 mg/dL (7-18); Calcium 8.4 mg/dL (8.5-10.1); Carbon Dioxide 25 mmol/L (21-32); Chloride 108 mmol/L (98-107); GFR African American 189 mL/min; GFR Non-African American 157 mL/min; Glucose 93 mg/dL (74-106); Sodium 141 mmol/L (136-145)
[2017-04-23 18:10] LABS: Alkaline Phosphatase 176 U/L (45-117); Aspartate Aminotransferase 88 U/L (15-37); Bilirubin, Total 6.5 mg/dL (0.2-1.0); Total Protein 7.7 g/dL (6.4-8.2)
[2017-04-23 18:12] LABS: Amylase 156 U/L (25-115)
[2017-04-23 18:31] LABS: Anisocytosis Slight; Platelet Estimate Adequate
[2017-04-23] MEDS ORDERED: SODIUM CHLORIDE 0.9% 500 ML IVB ONE (18:59)
[2017-04-23] MEDS ORDERED: PANTOPRAZOLE SODIUM 80 MG in SODIUM CHL 0.9% 60 ML IV ONE (19:00)
[2017-04-23] MEDS ORDERED: HYDROmorphone HCL 2 MG/ML VL IV ONE (19:00)
[2017-04-23] MEDS ORDERED: ONDANSETRON HCL 4 MG/2 ML VIAL IV ONE (19:00)
[2017-04-23 19:26] LABS: INR 1.15 (0.9-1.15); Partial Thromboplastin Time 27.7 sec (22.64-33.71)
[2017-04-23 19:32] LABS: Prothrombin Time 12.6 sec (9.37-12.3)
[2017-04-23 22:00] VITALS: BP 103/66
== END 2017-04-23 23:16 | disposition home or self-care (01) ==
LOC: ER 16:17
DX: K70.31 Alcoholic cirrhosis of liver with ascites (principal); F17.210 Nicotine dependence, cigarettes, uncomplicated; F12.10 Cannabis abuse, uncomplicated; Z79.899 Other long term (current) drug therapy
CPT/HCPCS: 36415; 71020; 76705; 80053; 80320; 82140; 82150; 83690; 84484; 85025; 85610; 85730; 93005; 96365; 96366; 96375; 99285; C9113; J1170; J2405; J7030

== ENCOUNTER 2017-05-02 15:14 | Emergency (ER) | payer MEDICAID ==
[~2017-05-02] VITALS: Ht 170.2 cm; Wt 49.9 kg
[2017-05-02 16:01] LABS: Basophils # (auto) 0 uL; Basophils % (auto) 0.6 % (0.0-2.0); CONDITION Y; Eosinophils # (auto) 0.1 uL; Eosinophils % (auto) 1.6 % (0.0-7.0); Hematocrit 33.7 % (36.0-46.0); Hemoglobin 11.3 g/dL (12.2-16.2); Lymphocytes # (auto) 1.8 uL; Lymphocytes % (auto) 32.3 % (10.0-50.0); Mean Corpuscular Hemoglobin 33.1 pg (28.0-32.0); Mean Corpuscular Hgb Conc. 33.6 g/dL (32.0-36.0); Mean Corpuscular Volume 98.5 fL (80.0-100.0); Mean Platelet Volume 8.5 fL (7.4-10.4); Monocytes # (auto) 0.4 uL; Monocytes % (auto) 6.5 % (0.0-12.0); Neutrophils # (auto) 3.3 uL; Platelet Count (auto) 374 10^3/uL (140-450); Red Cell Distribution Width 17.2 % (11.6-16.0); SUSPECT SEE PRINTOUT; White Blood Cell 5.6 10^3/uL (4.4-10.8)
[2017-05-02 16:06] LABS: Albumin 2.5 g/dL (3.4-5.0); Anion Gap 11 (5-15); BUN/Creatinine Ratio 8.9; Blood Urea Nitrogen 5 mg/dL (7-18); Calcium 8.6 mg/dL (8.5-10.1); Carbon Dioxide 24 mmol/L (21-32); Chloride 105 mmol/L (98-107); GFR African American 162 mL/min; GFR Non-African American 134 mL/min; Glucose 104 mg/dL (74-106); Magnesium 1.5 mg/dL (1.6-2.6); Potassium 3.5 mmol/L (3.5-5.1); Sodium 140 mmol/L (136-145)
[2017-05-02 16:11] LABS: Alkaline Phosphatase 122 U/L (45-117); Aspartate Aminotransferase 54 U/L (15-37); Bilirubin, Total 3.4 mg/dL (0.2-1.0); Total Protein 8.4 g/dL (6.4-8.2)
[2017-05-02 16:27] LABS: Urine Bilirubin Negative (Negative); Urine Blood Negative /uL (Negative); Urine Color Yellow (Yellow); Urine Glucose Normal (Normal); Urine Ketone Negative (Negative); Urine Mucus FEW (None Seen); Urine Nitrite Negative (Negative); Urine RBC 1 /hpf (0 - 4); Urine Squamous Epithelial Cell FEW /hpf (<5)
[2017-05-02] MEDS ORDERED: SODIUM CHLORIDE 0.9% 1,000 ML IV ONE (21:05)
[2017-05-02] MEDS ORDERED: ONDANSETRON HCL 4 MG/2 ML VIAL IV ONE (21:15)
[2017-05-02] MEDS ORDERED: HYDROmorphone HCL 2 MG/ML VL IV ONE (21:15)
[2017-05-02 21:35] LABS: Basophils # (auto) 0.1 uL; Basophils % (auto) 0.9 % (0.0-2.0); CONDITION Y; Eosinophils # (auto) 0.1 uL; Eosinophils % (auto) 1.4 % (0.0-7.0); Hematocrit 32.5 % (36.0-46.0); Lymphocytes % (auto) 34.4 % (10.0-50.0); Mean Corpuscular Hemoglobin 32.9 pg (28.0-32.0); Mean Corpuscular Hgb Conc. 33.8 g/dL (32.0-36.0); Mean Corpuscular Volume 97.2 fL (80.0-100.0); Mean Platelet Volume 8.1 fL (7.4-10.4); Monocytes # (auto) 0.5 uL; Monocytes % (auto) 8.2 % (0.0-12.0); Neutrophils # (auto) 3.2 uL; Neutrophils % (auto) 55.1 % (37.0-80.0); Platelet Count (auto) 355 10^3/uL (140-450); Red Cell Distribution Width 17.6 % (11.6-16.0); White Blood Cell 5.8 10^3/uL (4.4-10.8)
[2017-05-02 21:53] LABS: Albumin 2.4 g/dL (3.4-5.0); Amylase 176 U/L (25-115); Anion Gap 11 (5-15); Aspartate Aminotransferase 56 U/L (15-37); BUN/Creatinine Ratio 12.5; Blood Urea Nitrogen 5 mg/dL (7-18); Calcium 8.3 mg/dL (8.5-10.1); Carbon Dioxide 23 mmol/L (21-32); Chloride 106 mmol/L (98-107); GFR African American 239 mL/min; GFR Non-African American 198 mL/min; Glucose 75 mg/dL (74-106); Magnesium 1.5 mg/dL (1.6-2.6); Potassium 3.4 mmol/L (3.5-5.1); Sodium 140 mmol/L (136-145)
[2017-05-02 21:58] LABS: Alkaline Phosphatase 117 U/L (45-117); Bilirubin, Total 3.2 mg/dL (0.2-1.0); INR 1.14 (0.9-1.15); Partial Thromboplastin Time 27.8 sec (22.64-33.71)
[2017-05-02 22:12] LABS: Prothrombin Time 12.4 sec (9.37-12.3)
[2017-05-03] MEDS ORDERED: HYDROmorphone HCL 2 MG/ML VL IV ONE (02:15)
[2017-05-03] MEDS: MAGNESIUM SULFATE 1GM/100ML 100 ML IV SCH ×3 (04:13→06:25)
[2017-05-03 06:00] VITALS: BP 106/77
== END 2017-05-03 08:09 | disposition home or self-care (01) ==
LOC: ER 15:24
DX: K74.60 Unspecified cirrhosis of liver (principal); E83.42 Hypomagnesemia; F17.210 Nicotine dependence, cigarettes, uncomplicated; F12.10 Cannabis abuse, uncomplicated; Z79.899 Other long term (current) drug therapy
CPT/HCPCS: 36415; 71010; 80053; 81001; 81025; 82150; 83690; 83735; 84484; 85025; 85610; 85730; 94761; 96361; 96365; 96366; 96375; 96376; 99285; J1170; J2405; J3475; J7030

== ENCOUNTER 2017-07-29 16:01 | Emergency (ER) | payer MEDICAID ==
[~2017-07-29] VITALS: Ht 170.2 cm; Wt 49.9 kg
[2017-07-29 16:57] LABS: Urine Bilirubin Negative (Negative); Urine Blood Negative /uL (Negative); Urine Color Yellow (Yellow); Urine Glucose Normal (Normal); Urine Ketone Negative (Negative); Urine Mucus FEW (None Seen); Urine Nitrite Negative (Negative); Urine RBC <1 /hpf (0 - 4); Urine Squamous Epithelial Cell FEW /hpf (<5); Urine Urobilinogen Normal (Negative); Urine pH 6.5 (5.0-8.0)
[2017-07-29 17:49] LABS: Basophils # (auto) 0 uL; Basophils % (auto) 0.5 % (0.0-2.0); Eosinophils # (auto) 0 uL; Eosinophils % (auto) 0.3 % (0.0-7.0); Hematocrit 40.6 % (36.0-46.0); Hemoglobin 13.6 g/dL (12.2-16.2); Lymphocytes # (auto) 2.4 uL; Lymphocytes % (auto) 29.9 % (10.0-50.0); Mean Corpuscular Hemoglobin 31.1 pg (28.0-32.0); Mean Corpuscular Hgb Conc. 33.5 g/dL (32.0-36.0); Mean Corpuscular Volume 92.8 fL (80.0-100.0); Mean Platelet Volume 7.7 fL (6.9-10.8); Monocytes # (auto) 0.7 uL; Monocytes % (auto) 9.2 % (0.0-12.0); Neutrophils # (auto) 4.9 uL; Neutrophils % (auto) 60.1 % (37.0-80.0); Nucleated Red Blood Cells % 0.1 %; Platelet Count (auto) 250 10^3/uL (140-450); Red Cell Distribution Width 14.6 % (11.8-14.3); White Blood Cell 8.1 10^3/uL (4.4-10.8)
[2017-07-29 18:01] LABS: Albumin 4.1 g/dL (3.4-5.0); BUN/Creatinine Ratio 7.9; Bilirubin, Total 0.7 mg/dL (0.2-1.0); Calcium 9.3 mg/dL (8.5-10.1); Potassium 3.5 mmol/L (3.5-5.1); Total Protein 8.1 g/dL (6.4-8.2)
[2017-07-29] MEDS ORDERED: SODIUM CHLORIDE 0.9% 1,000 ML IV ONE (20:06)
[2017-07-29] MEDS ORDERED: ONDANSETRON HCL 4 MG/2 ML VIAL IV ONE (20:15)
[2017-07-29] MEDS ORDERED: NITROFURANTOIN (MONO) 100 mg CAP PO ONE ×2 (20:15→22:32)
[2017-07-30 00:15] VITALS: BP 99/71
== END 2017-07-30 00:40 | disposition home or self-care (01) ==
LOC: ER 16:01
DX: O21.0 Mild hyperemesis gravidarum (principal); O99.331 Smoking (tobacco) complicating pregnancy, first trimester; O99.321 Drug use complicating pregnancy, first trimester; Z79.899 Other long term (current) drug therapy; Z87.440 Personal history of urinary (tract) infections
CPT/HCPCS: 36415; 76801; 80053; 81001; 84702; 85025; 94761; 96361; 96374; 99285; J2405; J7030

== ENCOUNTER 2017-09-05 05:25 | Emergency (ER) | payer MEDICAID ==
[~2017-09-05] VITALS: Ht 154.9 cm; Wt 49.9 kg
[~2017-09-05 05:25] MED LIST changes: -HYDR-4663 PO; +HYDR-4683 PO
[2017-09-05 07:11] VITALS: BP 95/63
[2017-09-05] MEDS ORDERED: KETOROLAC TROMETH 60MG/2ML VIAL IM ONE ×2 (07:45)
== END 2017-09-05 08:12 | disposition home or self-care (01) ==
LOC: EDBD 05:25 → ER 05:29
DX: S76.011A Strain of muscle, fascia and tendon of right hip, initial encounter (principal); S60.221A Contusion of right hand, initial encounter; F17.210 Nicotine dependence, cigarettes, uncomplicated; F12.10 Cannabis abuse, uncomplicated; V49.49XA Driver injured in collision with other motor vehicles in traffic accident, initial encounter; Y93.89 Activity, other specified; Y99.8 Other external cause status; Y92.410 Unspecified street and highway as the place of occurrence of the external cause
CPT/HCPCS: 73130; 73502; 96372; 99284; J1885